=== PATIENT | female | born 1965 | race Two or more races ===

== ENCOUNTER 2022-02-25 11:14 | Inpatient (IN) | payer MEDICAID, OTHER ==
[~2022-02-25] VITALS: Ht 137.2 cm; Wt 81.7 kg
[2022-02-25] MEDS ORDERED: HYDROcodone-ACET 5/325MG TAB PO ONE (13:00)
[2022-02-25] MEDS ORDERED: SODIUM CHLORIDE 0.9% 1,000 ML IV ONE (13:00)
[2022-02-25 13:19] LABS: Basophils # (auto) 0 10 ^3/uL (0-0.2); Basophils % (auto) 0.4 % (0.0-2.0); Eosinophils # (auto) 0 10 ^3/uL (0-0.8); Eosinophils % (auto) 0.4 % (0.0-7.0); Hematocrit 45.1 % (36.0-46.0); Hemoglobin 14.9 g/dL (12.2-16.2); Lymphocytes # (auto) 2.6 10 ^3/uL (0.4-5.4); Lymphocytes % (auto) 24.7 % (10.0-50.0); Mean Corpuscular Hemoglobin 29.4 pg (28.0-32.0); Mean Corpuscular Hgb Conc. 33.1 g/dL (32.0-36.0); Mean Corpuscular Volume 88.8 fL (80.0-100.0); Monocytes # (auto) 0.4 10 ^3/uL (0-1.3); Monocytes % (auto) 3.9 % (0.0-12.0); Neutrophils # (auto) 7.4 10 ^3/uL (1.6-8.6); Neutrophils % (auto) 70.6 % (37.0-80.0); Red Blood Cells 5.07 10^6/uL (4.0-5.20); Red Cell Distribution Width 13.4 % (11.8-14.3); White Blood Cell 10.5 10^3/uL (4.4-10.8)
[2022-02-25 13:37] LABS: BUN/Creatinine Ratio 15.1; Calcium 9.7 mg/dL (8.5-10.1); INR 0.97 (0.9-1.15); Potassium 3.3 mmol/L (3.5-5.1)
[2022-02-25] MEDS ORDERED: ACETAMINOPHEN 325 MG TAB PO PRN ×2 (15:15)
[2022-02-25] MEDS ORDERED: POTASSIUM CHL 20 Meq TABLET PO ONE (15:45)
[2022-02-25 16:33] LABS: Calcium 9.7 mg/dL (8.5-10.1); Potassium 3.5 mmol/L (3.5-5.1)
[2022-02-25 16:35] LABS: BUN/Creatinine Ratio 18.2
[2022-02-25 17:47] VITALS: BP 168/94
[2022-02-25] MEDS: MORPHINE SULFATE INJ 2 MG/ml SYRG IV PRN (18:24)
[2022-02-25] MEDS: SODIUM CHLORIDE 0.9% 1,000 ML IV SCH (18:24)
[2022-02-25] MEDS: hydrALAZINE HCL 20 MG/ML VL IV PRN (18:25)
[2022-02-25] MEDS ORDERED: METO-159 PO (18:35)
[2022-02-25] MEDS ORDERED: LOSA-69 PO (18:36)
[2022-02-25] MEDS ORDERED: LEVO150T10 PO (18:36)
[2022-02-25 21:30] VITALS: BP 117/66
[2022-02-25] MEDS: METOPROLOL TARTRATE 50 MG TAB PO SCH (22:15)
[2022-02-25] MEDS: HYDROcodone-ACET 5/325MG TAB PO PRN (22:29)
[2022-02-26 03:27] LABS: Urine Bacteria NONE SEEN /hpf (None Seen); Urine Blood Negative /uL (Negative); Urine Mucus FEW (None Seen); Urine Specific Gravity 1.023 (1.001-1.035); Urine WBC 110 /hpf (0 - 5); Urine WBC Clumps PRESENT /hpf (None Seen)
[2022-02-26 05:00] VITALS: BP 125/87
[2022-02-26] MEDS: HYDROcodone-ACET 5/325MG TAB PO PRN ×2 (06:40→22:34)
[2022-02-26 07:30] VITALS: BP 114/68
[2022-02-26] MEDS ORDERED: METOCLOPRAMIDE HCL 5MG/ml INJ 2ml VIAL IV PRN (07:30)
[2022-02-26] MEDS: SODIUM CHLORIDE 0.9% 1,000 ML IV SCH (08:05)
[2022-02-26 09:05] VITALS: BP 158/90
[2022-02-26] MEDS: METOPROLOL TARTRATE 50 MG TAB PO SCH ×2 (10:38→22:33)
[2022-02-26 13:00] VITALS: BP 132/81
[2022-02-26 17:02] VITALS: BP 170/84
[2022-02-26] MEDS: hydrALAZINE HCL 20 MG/ML VL IV PRN (19:11)
[2022-02-26] MEDS: MORPHINE SULFATE INJ 2 MG/ml SYRG IV PRN (20:34)
[2022-02-26] MEDS: ONDANSETRON HCL 4 MG/2 ML VIAL IV PRN (20:40)
[2022-02-26 22:00] VITALS: BP 126/76
[2022-02-27] MEDS: SODIUM CHLORIDE 0.9% 1,000 ML IV SCH ×2 (00:35→04:00)
[2022-02-27 05:00] VITALS: BP 150/78
[2022-02-27 07:30] VITALS: BP 105/64
[2022-02-27 09:00] VITALS: BP 118/73
[2022-02-27] MEDS: METOPROLOL TARTRATE 50 MG TAB PO SCH ×2 (10:05→22:50)
[2022-02-27] MEDS: HYDROcodone-ACET 5/325MG TAB PO PRN ×2 (10:06→20:29)
[2022-02-27 13:00] VITALS: BP 125/73
[2022-02-27 17:00] VITALS: BP 117/63
[2022-02-27] MEDS: ONDANSETRON HCL 4 MG/2 ML VIAL IV PRN (23:07)
[2022-02-27] MEDS: MORPHINE SULFATE INJ 2 MG/ml SYRG IV PRN (23:08)
[2022-02-28 05:14] VITALS: BP 135/76
[2022-02-28] MEDS: HYDROcodone-ACET 5/325MG TAB PO PRN (06:52)
[2022-02-28] MEDS: SODIUM CHLORIDE 0.9% 1,000 ML IV SCH ×2 (06:52→23:05)
[2022-02-28 09:00] VITALS: BP 130/76
[2022-02-28] MEDS: METOPROLOL TARTRATE 50 MG TAB PO SCH ×2 (10:02→22:56)
[2022-02-28 13:00] VITALS: BP 118/68
[2022-02-28 17:00] VITALS: BP 138/70
[2022-02-28] MEDS: HYDROcodone-ACET 7.5/325MG TAB PO PRN (20:13)
[2022-02-28 22:00] VITALS: BP 143/74
[2022-02-28] MEDS ORDERED: DOCUSATE SOD 100 MG CAP PO ONE (22:45)
[2022-03-01] MEDS: HYDROcodone-ACET 7.5/325MG TAB PO PRN ×3 (00:27→18:43)
[2022-03-01 05:00] VITALS: BP 149/73
[2022-03-01] MEDS: LEVOTHYROXINE SODIUM 100 MCG TAB PO SCH (06:50)
[2022-03-01 07:36] VITALS: BP 165/87
[2022-03-01] MEDS ORDERED: ADENOSINE 72 MG in GIVE UN-DILUTED 0 ML IV STA (08:40)
[2022-03-01 09:05] VITALS: BP 165/77
[2022-03-01] MEDS: DOCUSATE SOD 100 MG CAP PO SCH ×2 (10:00→21:40)
[2022-03-01] MEDS: METOPROLOL TARTRATE 50 MG TAB PO SCH ×2 (11:07→21:40)
[2022-03-01] MEDS: HYDROcodone-ACET 5/325MG TAB PO PRN (11:08)
[2022-03-01 12:43] VITALS: BP 154/79
[2022-03-01] MEDS ORDERED: ceFAZolin 1GM/50ML 100 ML IV ONE (15:33)
[2022-03-01] MEDS ORDERED: fentaNYL CITRATE 100 MCG/2 ML VL ONE (15:45)
[2022-03-01] MEDS ORDERED: MEPERIDINE HCL (25 MG/ML) 1ML VIAL ONE (15:45)
[2022-03-01] MEDS ORDERED: LABETALOL HCL 5 MG/ML 4ML SYRINGE IV PRN (16:00)
[2022-03-01] MEDS ORDERED: ePHEDrine SULFATE 50 MG/ML AMP IV PRN (16:00)
[2022-03-01] MEDS ORDERED: ONDANSETRON HCL 4 MG/2 ML VIAL IV PRN (16:00)
[2022-03-01] MEDS ORDERED: MIDAZOLAM HCL 2MG/2ML 2ml VIAL (1mg/ml) IV PRN (16:00)
[2022-03-01] MEDS ORDERED: HYDROmorphone HCL 2 MG/ML VL/or syr IV PRN (16:00)
[2022-03-01] MEDS ORDERED: MORPHINE SULFATE 4 MG/ML SYR/VIAL IV PRN (16:00)
[2022-03-01] MEDS ORDERED: BUPIVACAINE W/ EPINEPH 0.5% INJ 50ML MDV IJ ONE (16:12)
[2022-03-01] MEDS ORDERED: MIDAZOLAM HCL 2MG/2ML 2ml VIAL (1mg/ml) ONE (16:13)
[2022-03-01] MEDS ORDERED: DexAMETHasone SOD PHOS 10MG/1ML VIAL INJ ONE (16:35)
[2022-03-01] MEDS ORDERED: ONDANSETRON HCL 4 MG/2 ML VIAL ONE (16:36)
[2022-03-01] MEDS ORDERED: ETOMIDATE (2MG/ML) 20ML VIAL IV ONE (16:36)
[2022-03-01] MEDS: SODIUM CHLORIDE 0.9% 1,000 ML IV SCH (19:15)
[2022-03-01 22:00] VITALS: BP 159/75
[2022-03-02] MEDS: HYDROcodone-ACET 7.5/325MG TAB PO PRN ×2 (02:52→08:40)
[2022-03-02] MEDS: SODIUM CHLORIDE 0.9% 1,000 ML IV SCH (04:44)
[2022-03-02 05:00] VITALS: BP 122/71
[2022-03-02] MEDS: LEVOTHYROXINE SODIUM 100 MCG TAB PO SCH (06:28)
[2022-03-02] MEDS: DOCUSATE SOD 100 MG CAP PO SCH (08:40)
[2022-03-02] MEDS ORDERED: HYDR-4902 PO (08:54)
[2022-03-02 09:00] VITALS: BP 147/77
[2022-03-02] MEDS: METOPROLOL TARTRATE 50 MG TAB PO SCH (10:00)
[2022-03-02] MEDS: HYDROcodone-ACET 5/325MG TAB PO PRN (12:01)
[2022-03-02 12:59] VITALS: BP 128/67
== END 2022-03-02 14:00 | disposition home or self-care (01) | DRG 315 ==
LOC: ER 11:14 → CENTRAL 15:10
PROVIDERS: ADMIT Nurse Practitioner Family; ATTEND Family Medicine
PROC: BP1M1ZZ Fluoroscopy of Left Wrist using Low Osmolar Contrast (ICD-10-PCS; 2022-03-01)
PROC: 0PSJ04Z Reposition Left Radius with Internal Fixation Device, Open Approach (ICD-10-PCS; principal; 2022-03-01 15:42)
DX: S52.572A Other intraarticular fracture of lower end of left radius, initial encounter for closed fracture (principal); E03.9 Hypothyroidism, unspecified; E66.01 Morbid (severe) obesity due to excess calories; E87.6 Hypokalemia; I10 Essential (primary) hypertension; W01.0XXA Fall on same level from slipping, tripping and stumbling without subsequent striking against object, initial encounter; I44.7 Left bundle-branch block, unspecified; Z20.822 Contact with and (suspected) exposure to COVID-19; Z90.710 Acquired absence of both cervix and uterus; Z90.49 Acquired absence of other specified parts of digestive tract; Z68.42 Body mass index [BMI] 45.0-49.9, adult; Y93.89 Activity, other specified; Y92.89 Other specified places as the place of occurrence of the external cause; Y99.8 Other external cause status
CPT/HCPCS: 36415; 71045; 73100; 73110; 76000; 78452; 80048; 81001; 85025; 85610; 86850; 86900; 86901; 93005; 93017; 93306; 96360; 96361; G0378; J0153; J0690; J1100; J2250; J2405

== ENCOUNTER 2022-08-31 07:27 | Inpatient (IN) | payer MEDICAID ==
[~2022-08-31] VITALS: Ht 152.4 cm; Wt 90.2 kg
[~2022-08-31 07:27] MED LIST: HYDR-4902 PO; LEVO150T10 PO; LOSA-69 PO; METO-159 PO
[2022-08-31 08:03] LABS: Basophils # (auto) 0 10 ^3/uL (0-0.2); Basophils % (auto) 0.2 % (0.0-2.0); Eosinophils # (auto) 0.1 10 ^3/uL (0-0.8); Eosinophils % (auto) 0.8 % (0.0-7.0); Hematocrit 43.7 % (36.0-46.0); Hemoglobin 15.4 g/dL (12.2-16.2); Lymphocytes # (auto) 2.5 10 ^3/uL (0.4-5.4); Lymphocytes % (auto) 19.5 % (10.0-50.0); Mean Corpuscular Hemoglobin 31.4 pg (28.0-32.0); Mean Corpuscular Hgb Conc. 35.1 g/dL (32.0-36.0); Mean Corpuscular Volume 89.4 fL (80.0-100.0); Monocytes # (auto) 0.8 10 ^3/uL (0-1.3); Monocytes % (auto) 6.1 % (0.0-12.0); Neutrophils # (auto) 9.5 10 ^3/uL (1.6-8.6); Neutrophils % (auto) 73.4 % (37.0-80.0); Nucleated Red Blood Cells % 0.2 %; Red Blood Cells 4.89 10^6/uL (4.0-5.20); Red Cell Distribution Width 13.4 % (11.8-14.3); White Blood Cell 12.9 10^3/uL (4.4-10.8)
[2022-08-31 08:13] LABS: Urine Bacteria NONE SEEN /hpf (None Seen); Urine Blood 3+ /uL (Negative); Urine Mucus FEW (None Seen); Urine Specific Gravity 1.027 (1.001-1.035); Urine WBC 121 /hpf (0 - 5); Urine WBC Clumps PRESENT /hpf (None Seen)
[2022-08-31 08:18] LABS: Albumin 3.8 g/dL (3.4-5.0); Calcium 9.7 mg/dL (8.5-10.1); Potassium 4.1 mmol/L (3.5-5.1)
[2022-08-31 08:21] LABS: BUN/Creatinine Ratio 17.9 (10.0-20.0); Bilirubin, Total 0.6 mg/dL (0.2-1.0); Total Protein 8.6 g/dL (6.4-8.2)
[2022-08-31] MEDS ORDERED: cefTRIAXone 1GM/50ML D5W 50 ML IV ONE (08:45)
[2022-08-31] MEDS ORDERED: TAMSULOSIN HYDROCHLORIDE 0.4 MG CAP PO ONE (08:45)
[2022-08-31] MEDS ORDERED: KETOROLAC TROMETH 30 MG/ML 1ML VIAL IV ONE (08:45)
[2022-08-31] MEDS ORDERED: SODIUM CHLORIDE 0.9% 1,000 ML IV ONE ×2 (08:45)
[2022-08-31] MEDS: SODIUM CHLORIDE 0.9% 1,000 ML IV SCH ×2 (12:30→21:03)
[2022-08-31] MEDS ORDERED: hydrALAZINE HCL 20 MG/ML VL IV PRN (13:00)
[2022-08-31] MEDS ORDERED: PANTOPRAZOLE 40 MG/10 ML VIAL INJ IV ONE (13:00)
[2022-08-31 16:25] LABS: Cholesterol 229 mg/dL (< 200)
[2022-08-31 16:28] LABS: HDL Cholesterol 38 mg/dL (40-59); LDL Cholesterol 166 mg/dL (< 100); Triglycerides 241 mg/dL (< 150)
[2022-08-31] MEDS: MORPHINE SULFATE INJ 2 MG/ml SYRG IV PRN (16:28)
[2022-08-31 16:44] LABS: Alcohol, Urine < 3.0 mg/dL (0-10); Amphetamine Screen, Urine NEGATIVE (NEGATIVE); Barbiturate Scree,Urine NEGATIVE (NEGATIVE); Benzodiazephine Screen, Urine NEGATIVE (NEGATIVE); Cannabinoid Screen, Urine NEGATIVE (NEGATIVE); Cocaine Screen, Urine NEGATIVE (NEGATIVE); Opiate Scree,Urine NEGATIVE (NEGATIVE); Phencyclidine Screen, Urine NEGATIVE (NEGATIVE)
[2022-08-31] MEDS: TAMSULOSIN HYDROCHLORIDE 0.4 MG CAP PO SCH (18:49)
[2022-09-01] MEDS: MORPHINE SULFATE INJ 2 MG/ml SYRG IV PRN ×2 (03:56→13:05)
[2022-09-01] MEDS: SODIUM CHLORIDE 0.9% 1,000 ML IV SCH ×3 (04:17→21:07)
[2022-09-01 06:31] LABS: Basophils # (auto) 0.1 10 ^3/uL (0-0.2); Eosinophils # (auto) 0.1 10 ^3/uL (0-0.8); Eosinophils % (auto) 1.2 % (0.0-7.0); Hematocrit 39.2 % (36.0-46.0); Hemoglobin 13.9 g/dL (12.2-16.2); Lymphocytes # (auto) 2.5 10 ^3/uL (0.4-5.4); Lymphocytes % (auto) 32.8 % (10.0-50.0); Mean Corpuscular Hemoglobin 31.9 pg (28.0-32.0); Mean Corpuscular Hgb Conc. 35.5 g/dL (32.0-36.0); Monocytes # (auto) 0.4 10 ^3/uL (0-1.3); Monocytes % (auto) 5.7 % (0.0-12.0); Neutrophils # (auto) 4.4 10 ^3/uL (1.6-8.6); Neutrophils % (auto) 59.3 % (37.0-80.0); Nucleated Red Blood Cells % 0.2 %; Red Blood Cells 4.35 10^6/uL (4.0-5.20); Red Cell Distribution Width 13.1 % (11.8-14.3); White Blood Cell 7.5 10^3/uL (4.4-10.8)
[2022-09-01] MEDS: LEVOTHYROXINE SODIUM 50 MCG TAB PO SCH (06:37)
[2022-09-01 06:40] LABS: Potassium 3.7 mmol/L (3.5-5.1)
[2022-09-01 06:50] LABS: Albumin 3.2 g/dL (3.4-5.0); Bilirubin, Total 0.4 mg/dL (0.2-1.0); Calcium 8.7 mg/dL (8.5-10.1); Total Protein 7.3 g/dL (6.4-8.2)
[2022-09-01] MEDS ORDERED: PATIENTS OWN MEDICATION (Levothyroxine Sodium 150 MCG) PO SCH (07:00)
[2022-09-01] MEDS: cefTRIAXone 1GM/50ML D5W 50 ML IV SCH (09:44)
[2022-09-01] MEDS ORDERED: PATIENTS OWN MEDICATION (Metoprolol Tartrate 100 MG) PO SCH (10:00)
[2022-09-01] MEDS: ACETAMINOPHEN 325 MG TAB PO PRN (12:29)
[2022-09-01] MEDS: PANTOPRAZOLE 40 MG/10 ML VIAL INJ IV SCH (12:29)
[2022-09-01] MEDS: ENOXAPARIN SOD 40 MG/0.4 ML SYRINGE SC SCH (12:30)
[2022-09-01] MEDS: METOPROLOL TARTRATE 50 MG TAB PO SCH (12:42)
[2022-09-01 14:07] VITALS: BP 136/86
[2022-09-01 15:30] VITALS: BP 122/80
[2022-09-01 15:33] VITALS: BP 122/80
[2022-09-01 16:58] VITALS: BP 124/76
[2022-09-01] MEDS: TAMSULOSIN HYDROCHLORIDE 0.4 MG CAP PO SCH (17:26)
[2022-09-01] MEDS: HYDROcodone-ACET 5/325MG TAB PO PRN ×2 (17:28→23:00)
[2022-09-01 20:00] VITALS: BP 122/76
[2022-09-01] MEDS: LOSARTAN POTASSIUM 50 MG TAB PO PRN (21:30)
[2022-09-01 22:00] VITALS: BP 166/98
[2022-09-01] MEDS: ATORVASTATIN 20 MG TAB PO SCH (22:48)
[2022-09-02] MEDS: HYDROcodone-ACET 5/325MG TAB PO PRN (04:14)
[2022-09-02] MEDS: LOSARTAN POTASSIUM 50 MG TAB PO PRN (04:15)
[2022-09-02] MEDS: SODIUM CHLORIDE 0.9% 1,000 ML IV SCH ×3 (04:19→20:15)
[2022-09-02 05:00] VITALS: BP 179/96
[2022-09-02 06:19] LABS: INR 0.95 (0.9-1.15); Partial Thromboplastin Time 26.5 sec (24.6-33.4)
[2022-09-02] MEDS: LEVOTHYROXINE SODIUM 50 MCG TAB PO SCH (06:54)
[2022-09-02] MEDS: cefTRIAXone 1GM/50ML D5W 50 ML IV SCH (08:43)
[2022-09-02 09:00] VITALS: BP 166/86
[2022-09-02] MEDS: PANTOPRAZOLE 40 MG/10 ML VIAL INJ IV SCH (09:00)
[2022-09-02] MEDS: METOPROLOL TARTRATE 50 MG TAB PO SCH ×2 (09:01→16:40)
[2022-09-02] MEDS: ENOXAPARIN SOD 40 MG/0.4 ML SYRINGE SC SCH (09:03)
[2022-09-02 13:00] VITALS: BP 165/89
[2022-09-02] MEDS: MORPHINE SULFATE INJ 2 MG/ml SYRG IV PRN (14:31)
[2022-09-02] MEDS ORDERED: ONDANSETRON HCL 4 MG/2 ML VIAL IV PRN (15:15)
[2022-09-02] MEDS ORDERED: LABETALOL HCL 5 MG/ML 4ML SYRINGE IV PRN (15:15)
[2022-09-02] MEDS ORDERED: MIDAZOLAM HCL 2MG/2ML 2ml VIAL (1mg/ml) IV PRN (15:15)
[2022-09-02] MEDS ORDERED: MORPHINE SULFATE 4 MG/ML SYR/VIAL IV PRN (15:15)
[2022-09-02] MEDS ORDERED: HYDROmorphone HCL 2 MG/ML VL/or syr IV PRN (15:15)
[2022-09-02] MEDS ORDERED: ePHEDrine SULFATE 50 MG/ML AMP IV PRN (15:15)
[2022-09-02] MEDS ORDERED: PHENYLEPHRINE HCL 10 MG/ML VL IV ONE (15:19)
[2022-09-02] MEDS ORDERED: METOCLOPRAMIDE HCL 5MG/ml INJ 2ml VIAL IV ONE (15:19)
[2022-09-02] MEDS ORDERED: SUCCINYLCHOLINE CHLORIDE 20 MG/ML 10ML VIAL IV ONE (15:25)
[2022-09-02] MEDS ORDERED: IOHEXOL 300 MG/ML 100ML BOTTLE IJ ONE (15:25)
[2022-09-02] MEDS ORDERED: fentaNYL CITRATE 100 MCG/2 ML VL ONE (15:26)
[2022-09-02] MEDS ORDERED: MEPERIDINE HCL (25 MG/ML) 1ML VIAL ONE (15:26)
[2022-09-02] MEDS ORDERED: MIDAZOLAM HCL 2MG/2ML 2ml VIAL (1mg/ml) ONE (15:26)
[2022-09-02] MEDS ORDERED: LIDOCAINE 2% JELLY 11ml (GLYDO) ONE (15:39)
[2022-09-02] MEDS ORDERED: DexAMETHasone SOD PHOS 10MG/1ML VIAL INJ ONE (15:54)
[2022-09-02] MEDS ORDERED: PROPOFOL 10 MG/ML 20 ML IV ONE (16:04)
[2022-09-02] MEDS: TAMSULOSIN HYDROCHLORIDE 0.4 MG CAP PO SCH (18:53)
[2022-09-02 20:00] VITALS: BP 148/79
[2022-09-02] MEDS: ACETAMINOPHEN 325 MG TAB PO PRN (21:00)
[2022-09-02 22:00] VITALS: BP 148/79
[2022-09-02] MEDS: ATORVASTATIN 20 MG TAB PO SCH (22:30)
[2022-09-03] VITALS (7 sets, daily range): BP systolic 126–177; BP diastolic 71–86
[2022-09-03] MEDS: SODIUM CHLORIDE 0.9% 1,000 ML IV SCH ×3 (04:15→21:32)
[2022-09-03] MEDS: LEVOTHYROXINE SODIUM 50 MCG TAB PO SCH (06:40)
[2022-09-03] MEDS: cefTRIAXone 1GM/50ML D5W 50 ML IV SCH (08:24)
[2022-09-03] MEDS: ENOXAPARIN SOD 40 MG/0.4 ML SYRINGE SC SCH (10:14)
[2022-09-03] MEDS: PANTOPRAZOLE 40 MG/10 ML VIAL INJ IV SCH (10:14)
[2022-09-03] MEDS: METOPROLOL TARTRATE 50 MG TAB PO SCH (10:15)
[2022-09-03] MEDS: TAMSULOSIN HYDROCHLORIDE 0.4 MG CAP PO SCH (17:32)
[2022-09-03] MEDS: ATORVASTATIN 20 MG TAB PO SCH (21:32)
[2022-09-03] MEDS: HYDROcodone-ACET 5/325MG TAB PO PRN (22:18)
[2022-09-03] MEDS: LOSARTAN POTASSIUM 50 MG TAB PO PRN (22:18)
[2022-09-04] MEDS: SODIUM CHLORIDE 0.9% 1,000 ML IV SCH (04:15)
[2022-09-04 05:00] VITALS: BP 155/82
[2022-09-04] MEDS: LEVOTHYROXINE SODIUM 50 MCG TAB PO SCH (06:21)
[2022-09-04] MEDS ORDERED: TRAM50TA2 PO (09:17)
[2022-09-04] MEDS ORDERED: TAM04C PO (09:17)
[2022-09-04] MEDS ORDERED: CIPR-173 PO (09:17)
[2022-09-04] MEDS ORDERED: ATO40T PO (09:19)
[2022-09-04] MEDS: ENOXAPARIN SOD 40 MG/0.4 ML SYRINGE SC SCH (10:17)
[2022-09-04] MEDS: PANTOPRAZOLE 40 MG/10 ML VIAL INJ IV SCH (10:17)
[2022-09-04] MEDS: cefTRIAXone 1GM/50ML D5W 50 ML IV SCH (10:18)
[2022-09-04] MEDS: METOPROLOL TARTRATE 50 MG TAB PO SCH (10:20)
[2022-09-04] MEDS: HYDROcodone-ACET 5/325MG TAB PO PRN (10:31)
[2022-09-04 12:00] VITALS: BP 130/76
[2022-09-04 14:47] VITALS: BP 149/86
== END 2022-09-04 16:15 | disposition home or self-care (01) | DRG 720 ==
LOC: ER 07:27 → OVERFLOW 12:05 → EAST 09-01 14:08
PROVIDERS: ADMIT Registered Nurse; ATTEND Family Medicine
PROC: 0TF78ZZ Fragmentation in Left Ureter, Via Natural or Artificial Opening Endoscopic (ICD-10-PCS; 2022-09-02)
PROC: 0T778DZ Dilation of Left Ureter with Intraluminal Device, Via Natural or Artificial Opening Endoscopic (ICD-10-PCS; principal; 2022-09-02 15:31)
DX: A41.9 Sepsis, unspecified organism (principal); K76.0 Fatty (change of) liver, not elsewhere classified; N13.6 Pyonephrosis; E66.01 Morbid (severe) obesity due to excess calories; N20.2 Calculus of kidney with calculus of ureter; I10 Essential (primary) hypertension; E89.0 Postprocedural hypothyroidism; Z20.822 Contact with and (suspected) exposure to COVID-19; E78.00 Pure hypercholesterolemia, unspecified; E86.0 Dehydration; Z68.38 Body mass index [BMI] 38.0-38.9, adult; Z90.710 Acquired absence of both cervix and uterus; K57.30 Diverticulosis of large intestine without perforation or abscess without bleeding
CPT/HCPCS: 36415; 71045; 74176; 76775; 80053; 80061; 80307; 81001; 83036; 83690; 84443; 85025; 85610; 85730; 87086; 87426; 96361; 96365; 96375; C9113; G0378; J0330; J0696; J1100; J1885; J2250; J2704

== ENCOUNTER 2022-11-18 23:55 | Inpatient (IN) | payer MEDICAID ==
[~2022-11-18] VITALS: Ht 157.5 cm; Wt 89.1 kg
[~2022-11-18 23:55] MED LIST changes: +ATO40T PO; +CIPR-173 PO; -LOSA-69 PO; +LOSA50TA46 PO; +TAMS-35 PO; +TRAM50TA2 PO
[2022-11-19 01:22] LABS: Urine Bacteria NONE SEEN /hpf (None Seen); Urine Blood 3+ /uL (Negative); Urine Mucus FEW (None Seen); Urine Specific Gravity 1.016 (1.001-1.035); Urine WBC 207 /hpf (0 - 5)
[2022-11-19 03:23] LABS: Basophils # (auto) 0.1 10 ^3/uL (0-0.2); Basophils % (auto) 1.6 % (0.0-2.0); Eosinophils # (auto) 0.2 10 ^3/uL (0-0.8); Eosinophils % (auto) 2.1 % (0.0-7.0); Hematocrit 40.7 % (36.0-46.0); Hemoglobin 13.9 g/dL (12.2-16.2); Lymphocytes # (auto) 2.8 10 ^3/uL (0.4-5.4); Lymphocytes % (auto) 32.8 % (10.0-50.0); Mean Corpuscular Hemoglobin 30.9 pg (28.0-32.0); Mean Corpuscular Hgb Conc. 34.2 g/dL (32.0-36.0); Mean Corpuscular Volume 90.3 fL (80.0-100.0); Monocytes # (auto) 0.5 10 ^3/uL (0-1.3); Monocytes % (auto) 5.6 % (0.0-12.0); Neutrophils # (auto) 4.9 10 ^3/uL (1.6-8.6); Neutrophils % (auto) 57.9 % (37.0-80.0); Nucleated Red Blood Cells % 0.2 %; Red Blood Cells 4.51 10^6/uL (4.0-5.20); Red Cell Distribution Width 13.9 % (11.8-14.3); White Blood Cell 8.4 10^3/uL (4.4-10.8)
[2022-11-19 03:32] LABS: BUN/Creatinine Ratio 22.5 (10.0-20.0); Calcium 9.5 mg/dL (8.5-10.1); Potassium 3.9 mmol/L (3.5-5.1)
[2022-11-19] MEDS ORDERED: cefTRIAXone 1GM/50ML D5W 50 ML IV ONE (04:30)
[2022-11-19] MEDS ORDERED: ONDANSETRON HCL 4 MG/2 ML VIAL IV PRN ×2 (07:00→19:30)
[2022-11-19] MEDS ORDERED: MORPHINE SULFATE INJ 2 MG/ml SYRG IV PRN (07:00)
[2022-11-19] MEDS ORDERED: NITROGLYCERIN 0.4 MG SL TAB SL PRN (07:00)
[2022-11-19] MEDS ORDERED: HYDROcodone-ACET 5/325MG TAB PO PRN (07:00)
[2022-11-19] MEDS ORDERED: hydrALAZINE HCL 20 MG/ML VL IV PRN (07:00)
[2022-11-19] MEDS ORDERED: ACETAMINOPHEN 325 MG TAB PO PRN (07:00)
[2022-11-19] MEDS ORDERED: DOCUSATE SOD 100 MG CAP PO PRN (07:00)
[2022-11-19] MEDS: LEVOTHYROXINE SODIUM 50 MCG TAB PO SCH (07:14)
[2022-11-19 08:03] LABS: Basophils # (auto) 0 10 ^3/uL (0-0.2); Basophils % (auto) 0.5 % (0.0-2.0); Eosinophils # (auto) 0.1 10 ^3/uL (0-0.8); Eosinophils % (auto) 1.8 % (0.0-7.0); Hematocrit 38.9 % (36.0-46.0); Hemoglobin 13.2 g/dL (12.2-16.2); Lymphocytes # (auto) 2.1 10 ^3/uL (0.4-5.4); Lymphocytes % (auto) 29.1 % (10.0-50.0); Mean Corpuscular Hemoglobin 30.5 pg (28.0-32.0); Mean Corpuscular Hgb Conc. 33.9 g/dL (32.0-36.0); Monocytes # (auto) 0.5 10 ^3/uL (0-1.3); Monocytes % (auto) 6.5 % (0.0-12.0); Neutrophils # (auto) 4.4 10 ^3/uL (1.6-8.6); Neutrophils % (auto) 62.1 % (37.0-80.0); Red Blood Cells 4.32 10^6/uL (4.0-5.20); White Blood Cell 7.1 10^3/uL (4.4-10.8)
[2022-11-19 08:20] LABS: Potassium 3.9 mmol/L (3.5-5.1)
[2022-11-19 08:27] LABS: Albumin 3.9 g/dL (3.4-5.0); BUN/Creatinine Ratio 23.4 (10.0-20.0); Bilirubin, Total 0.3 mg/dL (0.2-1.0); Calcium 9.2 mg/dL (8.5-10.1)
[2022-11-19] MEDS: METOPROLOL TARTRATE 50 MG TAB PO SCH ×2 (10:20→22:00)
[2022-11-19] MEDS: SODIUM CHLOR 0.9% PF (SALINE LOCK) 10ML VIAL/SYR IV SCH ×2 (14:07→22:21)
[2022-11-19 15:04] LABS: INR 1.04 (0.9-1.15)
[2022-11-19] MEDS ORDERED: FAMOTIDINE (10MG/ML) 2ML VL IV ONE (16:57)
[2022-11-19] MEDS ORDERED: MIDAZOLAM HCL 2MG/2ML 2ml VIAL (1mg/ml) ONE (16:59)
[2022-11-19] MEDS ORDERED: LIDOCAINE 2% (LOCAL ANESTH.) PF 5ml SDV ONE (16:59)
[2022-11-19] MEDS ORDERED: KETOROLAC TROMETH 30 MG/ML 1ML VIAL ONE (16:59)
[2022-11-19] MEDS ORDERED: DexAMETHasone SOD PHOS 10MG/1ML VIAL INJ ONE (16:59)
[2022-11-19] MEDS ORDERED: MEPERIDINE HCL (50 MG/ML) 1 ML VIAL ONE (16:59)
[2022-11-19] MEDS ORDERED: PROPOFOL 10 MG/ML 20 ML IV ONE (16:59)
[2022-11-19] MEDS ORDERED: fentaNYL CITRATE 100 MCG/2 ML VL ONE (16:59)
[2022-11-19] MEDS ORDERED: ONDANSETRON HCL 4 MG/2 ML VIAL ONE (16:59)
[2022-11-19] MEDS ORDERED: GLYCOPYRROLATE 0.2 MG/ML 1ML VIAL ONE (16:59)
[2022-11-19] MEDS ORDERED: HYDROmorphone HCL 2 MG/ML VL/or syr IV PRN (19:30)
[2022-11-19 21:43] VITALS: BP 126/68
[2022-11-19] MEDS ORDERED: ATORVASTATIN 20 MG TAB PO SCH (22:00)
[2022-11-20 05:00] VITALS: BP 96/57
[2022-11-20] MEDS: SODIUM CHLOR 0.9% PF (SALINE LOCK) 10ML VIAL/SYR IV SCH ×2 (06:29→14:00)
[2022-11-20] MEDS: LEVOTHYROXINE SODIUM 50 MCG TAB PO SCH (06:29)
[2022-11-20 07:54] LABS: Basophils # (auto) 0 10 ^3/uL (0-0.2); Basophils % (auto) 0.1 % (0.0-2.0); Eosinophils # (auto) 0 10 ^3/uL (0-0.8); Hematocrit 39.4 % (36.0-46.0); Hemoglobin 13.5 g/dL (12.2-16.2); Lymphocytes # (auto) 1.2 10 ^3/uL (0.4-5.4); Lymphocytes % (auto) 12.6 % (10.0-50.0); Mean Corpuscular Hemoglobin 30.7 pg (28.0-32.0); Mean Corpuscular Hgb Conc. 34.4 g/dL (32.0-36.0); Mean Corpuscular Volume 89.4 fL (80.0-100.0); Monocytes # (auto) 0.1 10 ^3/uL (0-1.3); Monocytes % (auto) 1.4 % (0.0-12.0); Neutrophils # (auto) 8.2 10 ^3/uL (1.6-8.6); Neutrophils % (auto) 85.9 % (37.0-80.0); Red Blood Cells 4.41 10^6/uL (4.0-5.20); Red Cell Distribution Width 13.8 % (11.8-14.3); White Blood Cell 9.6 10^3/uL (4.4-10.8)
[2022-11-20 08:22] LABS: Potassium 3.9 mmol/L (3.5-5.1)
[2022-11-20 08:29] LABS: Albumin 3.4 g/dL (3.4-5.0); BUN/Creatinine Ratio 23.2 (10.0-20.0); Bilirubin, Total 0.5 mg/dL (0.2-1.0); Calcium 9.2 mg/dL (8.5-10.1); Total Protein 7.2 g/dL (6.4-8.2)
[2022-11-20 09:00] VITALS: BP 138/70
[2022-11-20] MEDS ORDERED: cefTRIAXone 1GM/50ML D5W 50 ML IV SCH (09:00)
[2022-11-20] MEDS: METOPROLOL TARTRATE 50 MG TAB PO SCH (09:01)
[2022-11-20 13:00] VITALS: BP 116/54
[2022-11-20 16:44] VITALS: BP 101/49
[2022-11-20 17:08] VITALS: BP 131/68
[2022-11-20 17:13] VITALS: BP 131/68
== END 2022-11-20 19:10 | disposition home or self-care (01) | DRG 463 ==
LOC: ER 23:55 → OVERFLOW 11-19 07:04 → EAST 11-19 20:29 → TELE-EAST 11-20 04:07
PROVIDERS: ADMIT Nurse Practitioner Family; ATTEND Internal Medicine
PROC: 0TP98DZ Removal of Intraluminal Device from Ureter, Via Natural or Artificial Opening Endoscopic (ICD-10-PCS; principal; 2022-11-19 18:54)
DX: N13.6 Pyonephrosis (principal); E03.9 Hypothyroidism, unspecified; I10 Essential (primary) hypertension; Z83.3 Family history of diabetes mellitus; Z90.710 Acquired absence of both cervix and uterus; Z90.49 Acquired absence of other specified parts of digestive tract
CPT/HCPCS: 36415; 74176; 80048; 80053; 81001; 84443; 85025; 85610; 87086; 87088; 87186; 93005; 96365; G0378; J0696; J1100; J1885; J2001; J2250; J2405; J2704; J3490